=== PATIENT | male | born 1990 | race African-American/Black ===

== ENCOUNTER 2018-04-15 14:44 | Emergency (ER) | payer SELFPAY ==
[~2018-04-15] VITALS: Ht 182.9 cm; Wt 70.3 kg
[2018-04-15 14:56] VITALS: BP 139/75
--- NOTE | 2018-04-15 15:01 | NUR ---
27 YO M BIB SELF W/ C/O TOOTHACHE/INFECTION OF LEFT LOWER MOLAR X "AWHILE". PT REPORTS THE PAIN HAS BEEN EXACERBATED X 2 DAYS. REPORTS PUSINESS FROM THE GUMLINE. DENIES N/V/FEVER. REPORTS THAT HE DOES NOT HAVE A DENTIST. PT DENIES N/V/D; AAOX4, PERRL, WITH EVEN AND STEADY GAIT; PT DENIES ANY FEVER, CP, SOB, OR COUGH AT THIS TIME; PT STATES 0/10 PAIN AT THIS TIME; VSS; PATIENT POSITIONED FOR COMFORT; HOB ELEVATED; BEDRAILS UP X2; BED DOWN. HX DENIES RX DENIES
[2018-04-15 15:30] VITALS: BP 113/70
--- NOTE | 2018-04-15 15:30 | NUR ---
Patient discharged with v/s stable. Written and verbal after care instructions given and explained. Patient alert, oriented and verbalized understanding of instructions. Ambulatory with steady gait. All questions addressed prior to discharge. ID band removed. Patient advised to follow up with PMD. Rx of Mobile #5-325mg, Ibuprofen 600mg, and Penicillin VK 500mg given. Patient educated on indication of medication including possible reaction and side effects. Opportunity to ask questions provided and answered.
== END 2018-04-15 15:30 | disposition home or self-care (01) ==
LOC: MED 14:44
DX: K04.7 Periapical abscess without sinus (principal)
CPT/HCPCS: 99283